=== PATIENT | male | born 1940 | race Caucasian/White ===

== ENCOUNTER → 2021-01-24 | Outpatient (CLI) | payer MEDICARE ==
[2021-01-24 11:47] LABS: HEMOGLOBIN 14.2 gm/dl (14.0-17.5); RED BLOOD COUNT 4.66 M/UL (4.20-5.50); WHITE BLOOD COUNT 5.8 K/UL (4.5-11.0)
[2021-01-24 12:51] LABS: BUN/CREATININE RATIO 25 (0-10)
== END ==
LOC: LAB 09:13
PROVIDERS: Family Medicine
DX: I10 Essential (primary) hypertension (principal); E78.2 Mixed hyperlipidemia
CPT/HCPCS: 36415; 80053; 80061; 85027

== ENCOUNTER → 2021-04-13 | Outpatient (CLI) | payer MEDICARE ==
[2021-04-13 14:36] LABS: HEMOGLOBIN 13.5 gm/dl (14.0-17.5); RED BLOOD COUNT 4.35 M/UL (4.20-5.50); WHITE BLOOD COUNT 6.8 K/UL (4.5-11.0)
== END ==
LOC: LAB 13:46
PROVIDERS: Psychiatry & Neurology Neurology
DX: Z00.00 Encounter for general adult medical examination without abnormal findings (principal); D69.6 Thrombocytopenia, unspecified
CPT/HCPCS: 36415; 82565; 84520; 85027

== ENCOUNTER → 2021-04-25 | Outpatient (CLI) | payer MEDICARE | LOC: LAB 09:45 | PROVIDERS: Family Medicine | DX: N18.30 Chronic kidney disease, stage 3 unspecified (principal) | CPT/HCPCS: 36415; 80048 ==

== ENCOUNTER → 2021-05-23 | Outpatient (CLI) | payer MEDICARE ==
[2021-05-23 10:49] LABS: BUN/CREATININE RATIO 21 (0-10)
== END ==
LOC: LAB 07:54
PROVIDERS: Family Medicine
DX: N18.30 Chronic kidney disease, stage 3 unspecified (principal)
CPT/HCPCS: 36415; 80048

== ENCOUNTER → 2021-06-20 | Outpatient (CLI) | payer MEDICARE | LOC: EXRD 06-12 14:30 | DX: G45.9 Transient cerebral ischemic attack, unspecified (principal); I67.82 Cerebral ischemia; Z86.79 Personal history of other diseases of the circulatory system; R56.1 Post traumatic seizures | CPT/HCPCS: 93880 ==

== ENCOUNTER → 2021-09-28 | Outpatient (CLI) | payer MEDICARE ==
[2021-09-28 08:04] LABS: HEMOGLOBIN 14.5 gm/dl (14.0-17.5); RED BLOOD COUNT 4.86 M/UL (4.20-5.50); WHITE BLOOD COUNT 6.7 K/UL (4.5-11.0)
[2021-09-29 07:10] LABS: ESTIM. AVG GLU (EAG) 148 mg/dL (.); HEMOGLOBIN A1C 6.8 % (4.8-5.6)
[2021-09-29 08:13] LABS: A/G RATIO 1.4 (1.2-2.2); ALKALINE PHOSPHATASE, S 48 IU/L (44-121); ALT (SGPT) 28 IU/L (0-44); AST (SGOT) 31 IU/L (0-40); BILIRUBIN, TOTAL 0.4 mg/dL (0.0-1.2); BUN 25 mg/dL (8-27); BUN/CREATININE RATIO 20 (10-24); CALCIUM, SERUM 10.1 mg/dL (8.6-10.2); CARBON DIOXIDE, TOTAL 23 mmol/L (20-29); CHLORIDE, SERUM 100 mmol/L (96-106); CHOLESTEROL, TOTAL 150 mg/dL (100-199); CREATININE, SERUM 1.24 mg/dL (0.76-1.27); EGFR IF AFRICN AM 62 (>59); EGFR IF NONAFRICN AM 54 (>59); GLOBULIN, TOTAL 3.3 g/dL (1.5-4.5); GLUCOSE, SERUM 133 mg/dL (65-99); HDL CHOLESTEROL 52 mg/dL (>39); LDL CHOLESTEROL CALC 78 mg/dL (0-99); LDL/HDL RATIO 1.5 ratio (0.0-3.6); POTASSIUM, SERUM 4.9 mmol/L (3.5-5.2); PROTEIN, TOTAL, SERUM 7.9 g/dL (6.0-8.5); SODIUM, SERUM 138 mmol/L (134-144); T. CHOL/HDL RATIO 2.9 ratio (0.0-5.0); TRIGLYCERIDES 114 mg/dL (0-149)
== END ==
LOC: LAB 07:24
PROVIDERS: Family Medicine
DX: E78.2 Mixed hyperlipidemia (principal); E11.9 Type 2 diabetes mellitus without complications
CPT/HCPCS: 36415; 80053; 80061; 83036; 85027

== ENCOUNTER 2021-10-09 02:49 | Emergency (ER) | payer MEDICARE, OTHER ==
[2021-10-09 03:31] LABS: HEMOGLOBIN 14.6 gm/dl (14.0-17.5); RED BLOOD COUNT 4.79 M/UL (4.20-5.50); WHITE BLOOD COUNT 6.9 K/UL (4.5-11.0)
[2021-10-09 03:57] LABS: BUN/CREATININE RATIO 17 (0-10)
== END 2021-10-09 11:45 | disposition home or self-care (01) ==
LOC: ER1 02:49
PROVIDERS: Family Medicine
DX: F32.A Depression, unspecified (principal); E11.9 Type 2 diabetes mellitus without complications; Z20.822 Contact with and (suspected) exposure to COVID-19
CPT/HCPCS: 0240U; 80053; 83605; 83690; 85025; 85610; 93005; 99285

== ENCOUNTER → 2021-10-10 | Outpatient (CLI) | payer MEDICARE, OTHER | LOC: KOH-I 08:30 | DX: E04.9 Nontoxic goiter, unspecified (principal); E04.1 Nontoxic single thyroid nodule | CPT/HCPCS: 76536 ==

== ENCOUNTER 2021-11-08 11:54 | Emergency (ER) | payer MEDICARE ==
[2021-11-08 12:02] LABS: HEMOGLOBIN 13.3 gm/dl (14.0-17.5); RED BLOOD COUNT 4.27 M/UL (4.20-5.50); WHITE BLOOD COUNT 7.8 K/UL (4.5-11.0)
[2021-11-08] MEDS ORDERED: ESCITALOPRAM OX10 MG PO (13:20)
[2021-11-08] MEDS ORDERED: LISINOPRIL5 MG PO (13:20)
[2021-11-08] MEDS ORDERED: CRESTOR40 MG PO (13:20)
[2021-11-08] MEDS ORDERED: METFORMIN HCL500 MG PO (13:20)
[2021-11-08] MEDS ORDERED: ASPIRIN EC81 MG PO (13:21)
== END 2021-11-08 16:02 | disposition home or self-care (01) ==
LOC: ER1 11:54
PROVIDERS: Emergency Medicine
DX: S06.9X0A Unspecified intracranial injury without loss of consciousness, initial encounter (principal); F32.A Depression, unspecified; X58.XXXA Exposure to other specified factors, initial encounter
CPT/HCPCS: 70450; 70496; 70498; 71045; 80053; 82550; 82553; 84484; 85025; 85610; 85730; 93005; 99284; Q9967

== ENCOUNTER → 2021-11-14 | Outpatient (CLI) | payer MEDICARE ==
[~2021-11-14] MED LIST: ASPIRIN EC81 MG PO; CRESTOR40 MG PO; ESCITALOPRAM OX10 MG PO; LISINOPRIL5 MG PO; METFORMIN HCL500 MG PO
== END ==
LOC: RAD 12:14
DX: J18.9 Pneumonia, unspecified organism (principal)
CPT/HCPCS: 71046

== ENCOUNTER 2021-12-18 15:48 | Emergency (ER) | payer MEDICARE ==
[2021-12-18 17:51] LABS: HEMOGLOBIN 12.9 gm/dl (14.0-17.5); RED BLOOD COUNT 4.18 M/UL (4.20-5.50); WHITE BLOOD COUNT 6.4 K/UL (4.5-11.0)
[2021-12-18 18:37] LABS: BUN/CREATININE RATIO 21 (0-10)
== END 2021-12-18 20:00 | disposition home or self-care (01) ==
LOC: ER1 15:48
PROVIDERS: Physician Assistant Medical
DX: E04.9 Nontoxic goiter, unspecified (principal); R11.0 Nausea; R19.7 Diarrhea, unspecified; E11.9 Type 2 diabetes mellitus without complications; G40.909 Epilepsy, unspecified, not intractable, without status epilepticus; Z90.49 Acquired absence of other specified parts of digestive tract; Z88.5 Allergy status to narcotic agent; Z79.899 Other long term (current) drug therapy
CPT/HCPCS: 70490; 71045; 80053; 80185; 81001; 82550; 82553; 83605; 83690; 84484; 85025; 93005; 99284; J7030

== ENCOUNTER → 2022-01-17 | Outpatient (CLI) | payer MEDICARE, OTHER ==
[2022-01-17 11:15] LABS: HEMOGLOBIN 11.9 gm/dl (14.0-17.5); RED BLOOD COUNT 3.83 M/UL (4.20-5.50); WHITE BLOOD COUNT 4.8 K/UL (4.5-11.0)
[2022-01-17 11:40] LABS: BUN/CREATININE RATIO 18 (0-10)
== END ==
LOC: LAB 09:53
PROVIDERS: Family Medicine
DX: E11.9 Type 2 diabetes mellitus without complications (principal); D64.9 Anemia, unspecified; E78.2 Mixed hyperlipidemia
CPT/HCPCS: 36415; 80053; 80061; 82728; 83036; 83540; 83550; 83735; 85027

== ENCOUNTER 2022-01-21 18:40 | Emergency (ER) | payer MEDICARE, OTHER ==
[2022-01-21 22:07] LABS: HEMOGLOBIN 11.7 gm/dl (14.0-17.5); RED BLOOD COUNT 3.74 M/UL (4.20-5.50); WHITE BLOOD COUNT 5.7 K/UL (4.5-11.0)
[2022-01-21 22:27] LABS: BUN/CREATININE RATIO 22 (0-10)
== END 2022-01-22 02:48 | disposition home or self-care (01) ==
LOC: ER1 18:40
PROVIDERS: Family Medicine
DX: R25.1 Tremor, unspecified (principal); E11.9 Type 2 diabetes mellitus without complications; Z95.0 Presence of cardiac pacemaker; Z88.5 Allergy status to narcotic agent; Z88.8 Allergy status to other drugs, medicaments and biological substances
CPT/HCPCS: 70450; 80053; 82550; 82553; 84484; 85025; 99284